=== PATIENT | male | born 1990 | race Two or more races ===

== ENCOUNTER 2019-01-03 11:55 | Emergency (ER) | payer SELFPAY ==
[2019-01-03 14:26] LABS: ALANINE AMINOTRANSFERASE 190 U/L (21-72); ALBUMIN 4.8 g/dL (3.5-5.0); ALKALINE PHOSPHATASE 91 U/L (38-126); ASPARTATE AMINO TRANSFERASE 74 U/L (17-59); BILIRUBIN,DIRECT 0.2 mg/dL (0.0-0.4); BILIRUBIN,TOTAL 0.6 mg/dL (0.2-1.3); TOTAL PROTEIN 8.2 g/dL (6.3-8.2)
--- NOTE | 2019-01-03 14:49 | ER Document Report ---
HPI <MIKECARMENELISEO - Last Filed: 01/03/19 15:04> - HPI Pain Level: 5 Notes: Patient is a 28-year-old male presenting to the emergency department with complaints of skin problem. Patient reports he has a large mass like lesion on the back of his scalp. He states this has been there for approximately 8 years but also reports that the itching and pain has worsened over the last 6 months. Patient denies ever seeking treatment for this. Patient denies any documented medical history. <NAFISA MERCADO - Last Filed: 01/04/19 09:32> - HPI Time Seen by Provider: 01/03/19 13:08 Past Medical History - General Information source: Patient - Social History Smoking Status: Current Every Day Smoker Frequency of alcohol use: None Drug Abuse: None Family History: Reviewed & Not Pertinent Patient has suicidal ideation: No Patient has homicidal ideation: No - Medical History Medical History: Negative Renal/ Medical History: Denies: Hx Peritoneal Dialysis Surgical Hx: Negative - Immunizations Immunizations up to date: Yes <NAFISA MERCADO - Last Filed: 01/04/19 09:32> Vertical Provider Document - CONSTITUTIONAL Notes: PHYSICAL EXAMINATION: GENERAL: Well-appearing, well-nourished and in no acute distress. HEAD: Atraumatic, normocephalic. EYES: Pupils equal round extraocular movements intact, conjunctiva are normal. ENT: Nares patent NECK: Normal range of motion LUNGS: No respiratory distress Musculoskeletal: Normal range of motion NEUROLOGICAL: Normal speech, normal gait. PSYCH: Normal mood, normal affect. SKIN: Warm, Dry, normal turgor, scattered rash on patient's bilateral upper extremities. Lesion to back of scalp measuring approximately 3 cm x 3 cm, circular in shape. - INFECTION CONTROL TRAVEL OUTSIDE OF THE [place] IN LAST 30 DAYS: No <NAFISA MERCADO - Last Filed: 01/04/19 09:32> Course - Re-evaluation Re-evalutation: 01/03/19 15:04 I did personally seen and examined this patient in conjunction with Nafisa Mercado, he complains of skin lesion in the back of his head which is quite painful and consistently enlarging as well as a mottled appearance to his skin that is been going on for years. Physical examination is consistent with a kerion to the posterior occiput, it is somewhat nodular and tender to palpation, it is not erythematous, there is no discharge, no evidence of secondary bacterial infection. 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 Patient will be treated with oral antifungals, LFTs are only mildly elevated, patient will quit drinking and have his LFTs checked in 2 weeks by primary care physician. - Vital Signs Vital signs: Temp Pulse Resp BP Pulse Ox 97.4 F 73 18 155/98 H 100 01/03/19 14:55 01/03/19 14:55 01/03/19 14:55 01/03/19 14:55 01/03/19 14:55 - Laboratory Laboratory results interpreted by me: 01/03/19 13:58 AST 74 H ALT 190 H <ELISEO CUEVAS - Last Filed: 01/03/19 15:04> - Re-evaluation Re-evalutation: Patient's examination is most consistent with the kerion. This is located at the posterior occiput. No evidence of infection as there is no surrounding erythema. Per Dr. smooth Waterman recommendation, LFTs were obtained which were found to be mildly elevated. We will proceed with placing patient on ketoconazole for 2 weeks with close follow-up for repeat LFTs. Patient does report drinking a pproximately 6-7 beers per night, encourage patient to stop drinking. - Vital Signs Vital signs: Temp Pulse Resp BP Pulse Ox 98.0 F 84 16 170/98 H 100 01/03/19 12:05 01/03/19 12:05 01/03/19 12:05 01/03/19 12:05 01/03/19 12:05 - Laboratory Result Diagrams: 01/03/19 13:58 Laboratory results interpreted by me: 01/03/19 13:58 AST 74 H ALT 190 H <NAFISA MERCADO - Last Filed: 01/04/19 09:32> Discharge <ELISEO CUEVAS - Last Filed: 01/03/19 15:04> <NAFISA MERCADO - Last Filed: 01/04/19 09:32> - Discharge Clinical Impression: Kerion Condition: Stable Disposition: HOME, SELF-CARE Additional Instructions: Your liver functions were elevated today. This is probably caused by your intake of alcohol. Please stop drinking or at least limit your alcohol intake. Please return in 2 weeks to have your liver function tests repeated. This may also be done at your primary care provider's office. As long as you are liver enzymes are not significantly elevated at that point in time we will give you an additional prescription for the medication for the fungal infection on the head. Prescriptions: Fluconazole [Diflucan] 150 mg PO DAILY #1 tablet Ketoconazole [Nizoral] 120 ml TP DAILY #240 ml
[2019-01-03 14:58] VITALS: BP 155/98
[2019-01-03 16:23] LABS: ANION GAP 11 (5-19); BLOOD UREA NITROGEN 11 mg/dL (7-20); CARBON DIOXIDE 24 mmol/L (22-30); CHLORIDE 105 mmol/L (98-107); GLUCOSE 96 mg/dL (75-110); POTASSIUM 4.1 mmol/L (3.6-5.0); SODIUM 139.9 mmol/L (137-145)
== END 2019-01-03 14:58 | disposition home or self-care (01) ==
LOC: ER 11:55
DX: B35.0 Tinea barbae and tinea capitis (principal); F17.200 Nicotine dependence, unspecified, uncomplicated; R79.89 Other specified abnormal findings of blood chemistry; R21 Rash and other nonspecific skin eruption
CPT/HCPCS: 36415; 80048; 80076; 82962; 99282